=== PATIENT | female | born 1940 | race African-American/Black ===

== ENCOUNTER 2020-04-18 15:55 | Observation (INO) ==
[2020-04-18] MEDS ORDERED: NITROGLYCERIN SL 0.4 MG TABLET SL PRN (19:17)
[2020-04-18] MEDS ORDERED: MORPHINE 4 MG/1 ML VIAL IV STA ×2 (19:18→22:00)
[2020-04-18 20:28] LABS: Basophils % 0.1 % (0.0-0.8); Eosinophils % 0.2 % (0.00-10.9); Hematocrit 39.7 VOL% (35.7-47.0); Hemoglobin 12.7 GM/DL (12.0-16.0); Immature Granulocytes % 0.5 %; Immature Granulocytes Absolute 0.06 #; Lymphocytes # 0.7 10*3/uL (1.4-4.0); Lymphocytes % 6.7 % (21.3-54.2); Mean Platelet Volume 10.3 FL (9.6-12.0); Monocytes % 10.9 % (1.7-12.7); Neutrophils % 81.6 % (38.7-73.9); Platelet Count 299 T/CUMM (130-400); Red Blood Count 3.78 MC/CUMM (3.8-5.5); Red Cell Distribution Width 14.5 % (9.3-17.3); White Blood Count 11.1 T/CUMM (4-12)
[2020-04-18 20:47] LABS: INR 1.3; PT Patient Result 13.6 SECS (9.8-11.9); Partial Thromboplastin Time 33.6 SECS (23.9-33.8)
[2020-04-18 20:48] LABS: Albumin 3.6 G/DL (3.4-5.0); Bilirubin,Total 0.8 MG/DL (0.2-1.0); Calcium 8.8 MG/DL (8.5-10.1); Osmolality,Calculated 274.1 MOS/KG (273-304); Potassium 5.1 MMOL/L (3.5-5.1); Total Protein 7.8 G/DL (6.4-8.3)
[2020-04-18] MEDS ORDERED: ALUM/MAG/SIMETH/LIDO VISC 1:1 30 ML BOTTLE PO STA (21:04)
[2020-04-18] MEDS ORDERED: ALUM/MAG/SIMETH/LIDO VISC 1:1 30 ML BOTTLE PO ONE (21:04)
[2020-04-19] MEDS ORDERED: MORPHINE 4 MG/1 ML VIAL IV PRN (02:05)
[2020-04-19] MEDS ORDERED: GLUCAGON 1 MG VIAL IM PRN (02:05)
[2020-04-19] MEDS ORDERED: DEXTROSE 50% 25 GM/50 ML VIAL IV PRN (02:05)
[2020-04-19] MEDS ORDERED: ONDANSETRON 4 MG/2 ML VIAL IV PRN (02:05)
[2020-04-19] MEDS: ENOXAPARIN 40 MG/0.4 ML SYRINGE SUBCUT SCH (04:15)
[2020-04-19 07:14] LABS: Basophils % 0.1 % (0.0-0.8); Hematocrit 37.7 VOL% (35.7-47.0); Hemoglobin 12.4 GM/DL (12.0-16.0); Immature Granulocytes % 0.6 %; Immature Granulocytes Absolute 0.08 #; Lymphocytes # 1.2 10*3/uL (1.4-4.0); Lymphocytes % 8.8 % (21.3-54.2); Mean Corpuscular HGB Conc 32.9 GM/DL (32-36); Mean Corpuscular Volume 102.4 FL (87-102); Mean Platelet Volume 10.2 FL (9.6-12.0); Monocytes % 18.6 % (1.7-12.7); NRBC # 0.02 10*3/uL; Neutrophils % 71.9 % (38.7-73.9); Platelet Count 321 T/CUMM (130-400); Red Blood Count 3.68 MC/CUMM (3.8-5.5); Red Cell Distribution Width 14.5 % (9.3-17.3); White Blood Count 14.2 T/CUMM (4-12)
[2020-04-19 07:35] LABS: Hypochromasia 1+; Lymphocytes 11 % (20-55); Microcytosis 1+; Platelet Estimate Adequate; Segmented Neutrophils 70 % (50-85); Total Cells Counted 100
[2020-04-19 07:38] LABS: Risk Ratio 1.94; VLDL CHOLESTEROL 9.8 MG/DL
[2020-04-19 07:38] LABS: Albumin 3.2 G/DL (3.4-5.0); Bilirubin,Total 1.2 MG/DL (0.2-1.0); Calcium 8.6 MG/DL (8.5-10.1); Osmolality,Calculated 268.5 MOS/KG (273-304); Potassium 4.6 MMOL/L (3.5-5.1)
[2020-04-19] MEDS: PANTOPRAZOLE 40 MG TABLET PO SCH ×2 (08:42→20:43)
[2020-04-19] MEDS ORDERED: PANTOPRAZOLE 40 MG TABLET PO SCH (09:00)
[2020-04-19] MEDS ORDERED: traMADol 50 MG TABLET PO PRN (12:18)
[2020-04-19] MEDS ORDERED: ALUM/MAG/SIMETH/LIDO VISC 1:1 30 ML BOTTLE PO ONE (12:19)
[2020-04-19] MEDS ORDERED: ALUMINUM/MAGNES/SIMETH MAX STR 30 ML UDCUP PO PRN (19:18)
[2020-04-20] MEDS: ENOXAPARIN 40 MG/0.4 ML SYRINGE SUBCUT SCH (02:40)
[2020-04-20 06:03] LABS: Basophils % 0.1 % (0.0-0.8); Eosinophils % 0.5 % (0.00-10.9); Hematocrit 37.2 VOL% (35.7-47.0); Hemoglobin 12.4 GM/DL (12.0-16.0); Immature Granulocytes % 0.3 %; Immature Granulocytes Absolute 0.02 #; Lymphocytes # 1.8 10*3/uL (1.4-4.0); Mean Corpuscular HGB Conc 33.3 GM/DL (32-36); Mean Corpuscular Volume 100.8 FL (87-102); Mean Platelet Volume 10.5 FL (9.6-12.0); Monocytes % 19.5 % (1.7-12.7); NRBC # 0.02 10*3/uL; Neutrophils % 56.6 % (38.7-73.9); Platelet Count 274 T/CUMM (130-400); Red Blood Count 3.69 MC/CUMM (3.8-5.5); Red Cell Distribution Width 14.4 % (9.3-17.3); White Blood Count 7.6 T/CUMM (4-12)
[2020-04-20 06:21] LABS: Calcium 8.5 MG/DL (8.5-10.1); Osmolality,Calculated 271.4 MOS/KG (273-304); Potassium 4.5 MMOL/L (3.5-5.1)
[2020-04-20 06:40] LABS: Lymphocytes 27 % (20-55); Nucleated Red Blood Cells 1 (0-5); Platelet Estimate Normal; Segmented Neutrophils 54 % (50-85); Total Cells Counted 100
[2020-04-20] MEDS: CLOPIDOGREL 75 MG TABLET PO SCH (08:20)
[2020-04-20] MEDS: PANTOPRAZOLE 40 MG TABLET PO SCH ×2 (08:20→20:40)
[2020-04-20] MEDS: ATORVASTATIN 20 MG TABLET PO SCH (08:20)
[2020-04-20] MEDS ORDERED: ENOXAPARIN 100 MG/ML SYRINGE SUBCUT STA (09:33)
[2020-04-20] MEDS ORDERED: diphenhydrAMINE CAP 25 MG CAPSULE PO ONE (09:34)
[2020-04-20] MEDS ORDERED: ENOXAPARIN 30 MG/0.3 ML SYRINGE IV ONE (09:34)
[2020-04-20] MEDS ORDERED: DIAZEPAM 5 MG TABLET PO ONE (09:34)
[2020-04-20] MEDS ORDERED: MAGNESIUM SULF RIDER 2 GM in PREMIX 1 EACH IV PRN (09:34)
[2020-04-20] MEDS ORDERED: POTASSIUM CHLORIDE RIDER 10 MEQ in PREMIX 1 EACH IV PRN (09:34)
[2020-04-20] MEDS ORDERED: ENOXAPARIN 120 MG/0.8 ML SYRINGE SUBCUT ONE (09:43)
[2020-04-20] MEDS: SODIUM CHLORIDE 0.9% 1,000 ML IV SCH ×2 (09:43→20:40)
[2020-04-20] MEDS ORDERED: MIDAZOLAM 2 MG/2 ML VIAL ONE (09:45)
[2020-04-20] MEDS ORDERED: LIDOCAINE 1% 20 ML VIAL ONE (09:45)
[2020-04-20] MEDS ORDERED: HYDROmorphone 2 MG/1 ML VIAL ONE (09:46)
[2020-04-20] MEDS ORDERED: ENOXAPARIN 30 MG/0.3 ML SYRINGE ONE ×3 (09:49→10:19)
[2020-04-20] MEDS ORDERED: ENOXAPARIN 60 MG/0.6 ML SYRINGE ONE (10:18)
[2020-04-20 12:02] LABS: Troponin I < 0.015 NG/ML (0.00-0.045)
[2020-04-20] MEDS: NITROGLYCERIN 2% OINT 1 INCH/GM PACK TOP SCH ×2 (13:12→18:13)
[2020-04-21] MEDS: NITROGLYCERIN 2% OINT 1 INCH/GM PACK TOP SCH ×3 (01:13→12:23)
[2020-04-21] MEDS: SODIUM CHLORIDE 0.9% 1,000 ML IV SCH ×2 (03:24→06:00)
[2020-04-21] MEDS: ENOXAPARIN 40 MG/0.4 ML SYRINGE SUBCUT SCH (03:26)
[2020-04-21 06:28] LABS: Basophils % 0.1 % (0.0-0.8); Eosinophils # 0.1 10*3/uL (0.0-0.87); Eosinophils % 1.6 % (0.00-10.9); Hematocrit 33.8 VOL% (35.7-47.0); Hemoglobin 11.1 GM/DL (12.0-16.0); Immature Granulocytes % 0.3 %; Immature Granulocytes Absolute 0.02 #; Lymphocytes # 1.1 10*3/uL (1.4-4.0); Lymphocytes % 16.9 % (21.3-54.2); Mean Corpuscular HGB Conc 32.8 GM/DL (32-36); Mean Corpuscular Volume 102.4 FL (87-102); Mean Platelet Volume 10.8 FL (9.6-12.0); Monocytes % 15.7 % (1.7-12.7); Neutrophils % 65.4 % (38.7-73.9); Platelet Count 267 T/CUMM (130-400); Red Cell Distribution Width 14.4 % (9.3-17.3); White Blood Count 6.8 T/CUMM (4-12)
[2020-04-21 06:55] LABS: Eosinophils 4 % (0-10); Lymphocytes 16 % (20-55); Macrocytosis Slight; Platelet Estimate Normal; Segmented Neutrophils 69 % (50-85); Total Cells Counted 100
[2020-04-21 07:01] LABS: Calcium 8.3 MG/DL (8.5-10.1); Osmolality,Calculated 273.1 MOS/KG (273-304); Potassium 5.1 MMOL/L (3.5-5.1)
[2020-04-21] MEDS: PANTOPRAZOLE 40 MG TABLET PO SCH (08:45)
[2020-04-21] MEDS: ATORVASTATIN 20 MG TABLET PO SCH (08:45)
[2020-04-21] MEDS: CLOPIDOGREL 75 MG TABLET PO SCH (08:45)
[2020-04-21 12:16] VITALS: BP 177/88
== END 2020-04-21 15:34 | disposition home health service (06) ==
LOC: N.ED 15:55 → N.EDINP 15:55 → N.TELES 04-19 04:42
PROVIDERS: ADMIT Internal Medicine; ATTEND Internal Medicine

== ENCOUNTER 2020-08-25 02:54 | Inpatient (IN) ==
[2020-08-25 03:33] LABS: Basophils % 0.1 % (0.0-0.8); Eosinophils # 0.3 10*3/uL (0.0-0.87); Eosinophils % 4.6 % (0.00-10.9); Hematocrit 37.8 VOL% (35.7-47.0); Hemoglobin 12.3 GM/DL (12.0-16.0); Immature Granulocytes % 0.4 %; Immature Granulocytes Absolute 0.03 #; Lymphocytes # 1.8 10*3/uL (1.4-4.0); Lymphocytes % 24.8 % (21.3-54.2); Mean Corpuscular HGB Conc 32.5 GM/DL (32-36); Mean Corpuscular Volume 101.1 FL (87-102); Monocytes % 13.9 % (1.7-12.7); Neutrophils % 56.2 % (38.7-73.9); Platelet Count 350 T/CUMM (130-400); Red Blood Count 3.74 MC/CUMM (3.8-5.5); Red Cell Distribution Width 14.5 % (9.3-17.3); White Blood Count 7.1 T/CUMM (4-12)
[2020-08-25 03:51] LABS: Albumin 3.7 G/DL (3.4-5.0); Bilirubin,Total 0.4 MG/DL (0.2-1.0); Osmolality,Calculated 285.3 MOS/KG (273-304); Potassium 3.6 MMOL/L (3.5-5.1); Total Protein 7.8 G/DL (6.4-8.2)
[2020-08-25] MEDS ORDERED: ONDANSETRON 4 MG/2 ML VIAL IV STA (04:57)
[2020-08-25] MEDS ORDERED: GLUCAGON 1 MG VIAL IM PRN (05:30)
[2020-08-25] MEDS ORDERED: DEXTROSE 50% 25 GM/50 ML VIAL IV PRN (05:30)
[2020-08-25] MEDS ORDERED: PROMETHAZINE 25 MG/1 ML VIAL IM PRN (05:38)
[2020-08-25] MEDS ORDERED: ONDANSETRON 4 MG/2 ML VIAL IV PRN (05:38)
[2020-08-25] MEDS ORDERED: ACETAMINOPHEN 325 MG TABLET PO PRN (05:38)
[2020-08-25] MEDS ORDERED: LACTULOSE 20 GM/30 ML UDCUP PO SCH ×2 (06:00→08:00)
[2020-08-25] MEDS ORDERED: POLYETHYLENE GLYCOL POWDER 17 GM PACK PO SCH (09:00)
[2020-08-25] MEDS: PANTOPRAZOLE 40 MG VIAL IV SCH ×2 (09:01→21:35)
[2020-08-25] MEDS: POLYETHYLENE GLYCOL POWDER 17 GM PACK PO SCH (21:36)
[2020-08-26 05:22] LABS: Basophils % 0.2 % (0.0-0.8); Eosinophils # 0.2 10*3/uL (0.0-0.87); Eosinophils % 4.5 % (0.00-10.9); Hematocrit 35.9 VOL% (35.7-47.0); Hemoglobin 11.9 GM/DL (12.0-16.0); Immature Granulocytes % 0.4 %; Immature Granulocytes Absolute 0.02 #; Lymphocytes # 1.5 10*3/uL (1.4-4.0); Lymphocytes % 31.9 % (21.3-54.2); Mean Corpuscular HGB Conc 33.1 GM/DL (32-36); Mean Corpuscular Volume 101.7 FL (87-102); Mean Platelet Volume 10.4 FL (9.6-12.0); Monocytes % 15.4 % (1.7-12.7); Neutrophils % 47.6 % (38.7-73.9); Platelet Count 312 T/CUMM (130-400); Red Blood Count 3.53 MC/CUMM (3.8-5.5); Red Cell Distribution Width 14.3 % (9.3-17.3); White Blood Count 4.7 T/CUMM (4-12)
[2020-08-26 05:53] LABS: Albumin 3.2 G/DL (3.4-5.0); Calcium 8.8 MG/DL (8.5-10.1); Osmolality,Calculated 283.1 MOS/KG (273-304); Potassium 3.7 MMOL/L (3.5-5.1); Total Protein 7.3 G/DL (6.4-8.2)
[2020-08-26] MEDS: POLYETHYLENE GLYCOL POWDER 17 GM PACK PO SCH (08:47)
[2020-08-26] MEDS: PANTOPRAZOLE 40 MG VIAL IV SCH (08:48)
[2020-08-26 09:14] VITALS: BP 117/70
== END 2020-08-26 12:23 | disposition home health service (06) | DRG 392 ==
LOC: EDBD → EDUNIT# → N.EDINP 02:54 → N.ED 02:54 → N.EDINP 06:06 → N.4E 06:16 → SUATTDRO 09:30
PROVIDERS: ADMIT Internal Medicine; ATTEND Internal Medicine

== ENCOUNTER 2021-05-07 03:32 | Observation (INO) ==
[2021-05-07] MEDS ORDERED: ONDANSETRON 4 MG/2 ML VIAL IV STA (03:55)
[2021-05-07] MEDS ORDERED: HYDROmorphone 2 MG/1 ML VIAL IV STA (03:55)
[2021-05-07 04:59] LABS: Eosinophils % 0.4 % (0.00-10.9); Hematocrit 42.2 VOL% (35.7-47.0); Hemoglobin 14.1 GM/DL (12.0-16.0); Immature Granulocytes % 0.3 %; Immature Granulocytes Absolute 0.02 #; Lymphocytes # 0.8 10*3/uL (1.4-4.0); Lymphocytes % 11.7 % (21.3-54.2); Mean Corpuscular HGB Conc 33.4 GM/DL (32-36); Mean Platelet Volume 10.1 FL (9.6-12.0); Monocytes % 7.5 % (1.7-12.7); Neutrophils % 80.1 % (38.7-73.9); Platelet Count 344 T/CUMM (130-400); Red Blood Count 4.22 MC/CUMM (3.8-5.5); Red Cell Distribution Width 13.7 % (9.3-17.3); White Blood Count 6.9 T/CUMM (4-12)
[2021-05-07 05:38] LABS: Albumin 3.7 G/DL (3.4-5.0); Potassium 3.6 MMOL/L (3.5-5.1); Total Protein 8.9 G/DL (6.4-8.2)
[2021-05-07 05:40] LABS: Bacteria,Urine Moderate /HPF (Few); RBC,Urine 2 /HPF (0-4); Squamous Epithelial Cell,Urine Occasional /HPF (0-10)
[2021-05-07 05:41] LABS: Bilirubin,Urine Negative (Negative); Blood, Urine Trace mg/dL (Negative); Glucose,Urine (UA) Negative (Negative); Ketones,Urine Negative (Negative); Nitrite,Urine Positive (Negative); Protein,Urine 30 MG/DL; Urine Appearance Clear (Clear); Urine Color Yellow (Yellow); Urine Specific Gravity 1.025 (1.001-1.035); Urine Urobilinogen 0.2 EU/DL (<2.0)
[2021-05-07] MEDS ORDERED: LABETALOL 20 MG/4 ML SYRINGE IV STA (05:43)
[2021-05-07] MEDS ORDERED: hydrALAZINE 20 MG/1 ML VIAL IV PRN (06:08)
[2021-05-07] MEDS ORDERED: GLUCAGON 1 MG VIAL IM PRN (06:08)
[2021-05-07] MEDS ORDERED: ONDANSETRON 4 MG/2 ML VIAL IV PRN (06:08)
[2021-05-07] MEDS ORDERED: DEXTROSE 10% 250 ML BAG IV PRN (06:26)
[2021-05-07] MEDS ORDERED: MORPHINE 4 MG/1 ML VIAL IV PRN (06:27)
[2021-05-07 07:30] LABS: Risk Ratio 2.51; Thyroid Stimulating Hormone 2.36 uIU/ml (0.358-3.74)
[2021-05-07] MEDS ORDERED: cefTRIAXone 1,000 MG in SODIUM CHLORIDE 0.9% 100 ML IV SCH (08:00)
[2021-05-07] MEDS ORDERED: traMADol 50 MG TABLET PO PRN (09:00)
[2021-05-07] MEDS: ENOXAPARIN 40 MG/0.4 ML SYRINGE SUBCUT SCH (09:09)
[2021-05-07] MEDS: PANTOPRAZOLE 40 MG TABLET PO SCH (09:10)
[2021-05-07] MEDS: CLOPIDOGREL 75 MG TABLET PO SCH (09:10)
[2021-05-07] MEDS: ACETAMINOPHEN 325 MG TABLET PO PRN (20:26)
[2021-05-07] MEDS ORDERED: DONEPEZIL 10 MG TABLET PO SCH (21:00)
[2021-05-07] MEDS ORDERED: ATORVASTATIN 40 MG TABLET PO SCH (21:00)
[2021-05-08 05:26] LABS: Basophils % 0.1 % (0.0-0.8); Eosinophils % 0.3 % (0.00-10.9); Hematocrit 39.7 VOL% (35.7-47.0); Immature Granulocytes % 0.4 %; Immature Granulocytes Absolute 0.03 #; Lymphocytes # 0.8 10*3/uL (1.4-4.0); Lymphocytes % 11.2 % (21.3-54.2); Mean Corpuscular HGB Conc 32.7 GM/DL (32-36); Mean Corpuscular Volume 100.5 FL (87-102); Mean Platelet Volume 10.5 FL (9.6-12.0); Platelet Count 342 T/CUMM (130-400); Red Blood Count 3.95 MC/CUMM (3.8-5.5); Red Cell Distribution Width 13.7 % (9.3-17.3); White Blood Count 6.7 T/CUMM (4-12)
[2021-05-08 05:46] LABS: Calcium 9.3 MG/DL (8.5-10.1); Potassium 4.1 MMOL/L (3.5-5.1)
[2021-05-08] MEDS ORDERED: FUROSEMIDE 20 MG TABLET PO SCH (09:00)
[2021-05-08] MEDS ORDERED: allopurinoL 300 MG TABLET PO SCH (09:00)
[2021-05-08] MEDS ORDERED: amLODIPine 10 MG TABLET PO SCH (09:00)
[2021-05-08] MEDS ORDERED: LOSARTAN 50 MG TABLET PO SCH (09:00)
[2021-05-08] MEDS: PANTOPRAZOLE 40 MG TABLET PO SCH (09:23)
[2021-05-08] MEDS: CLOPIDOGREL 75 MG TABLET PO SCH (09:23)
[2021-05-08] MEDS: ENOXAPARIN 40 MG/0.4 ML SYRINGE SUBCUT SCH (09:23)
[2021-05-08] MEDS: ACETAMINOPHEN 325 MG TABLET PO PRN (11:13)
[2021-05-08 12:39] VITALS: BP 165/86
== END 2021-05-08 12:57 | disposition home or self-care (01) ==
LOC: SUATTDRO → EDBD → EDUNIT# → N.ED 03:32 → N.EDINP 03:32 → SUATTDRO 06:08 → N.TELEN 17:00
PROVIDERS: ADMIT Emergency Medicine; ATTEND Internal Medicine

== ENCOUNTER 2021-06-14 17:04 | Observation (INO) ==
[2021-06-14] MEDS ORDERED: ONDANSETRON 4 MG/2 ML VIAL IV STA (17:57)
[2021-06-14] MEDS ORDERED: SODIUM CHLORIDE 0.9% 1,000 ML IV STA (17:57)
[2021-06-14 18:17] LABS: Basophils % 0.1 % (0.0-0.8); Eosinophils # 0.1 10*3/uL (0.0-0.87); Eosinophils % 1.5 % (0.00-10.9); Hematocrit 39.7 VOL% (35.7-47.0); Immature Granulocytes % 0.4 %; Immature Granulocytes Absolute 0.03 #; Lymphocytes # 1.8 10*3/uL (1.4-4.0); Lymphocytes % 22.8 % (21.3-54.2); Mean Corpuscular HGB Conc 32.7 GM/DL (32-36); Mean Platelet Volume 9.9 FL (9.6-12.0); Monocytes % 12.8 % (1.7-12.7); Neutrophils % 62.4 % (38.7-73.9); Platelet Count 429 T/CUMM (130-400); Red Blood Count 3.93 MC/CUMM (3.8-5.5); Red Cell Distribution Width 14.2 % (9.3-17.3)
[2021-06-14 18:29] LABS: Albumin 3.5 G/DL (3.4-5.0); Bilirubin,Total 0.8 MG/DL (0.20-1.00); Calcium 9.4 MG/DL (8.5-10.1); Osmolality,Calculated 281.4 MOS/KG (273-304); Potassium 3.9 MMOL/L (3.5-5.1); Total Protein 8.3 G/DL (6.4-8.2)
[2021-06-14 20:29] LABS: Bacteria,Urine Occasional /HPF (Few); Bilirubin,Urine Negative (Negative); Blood, Urine Negative (Negative); Glucose,Urine (UA) Negative (Negative); Ketones,Urine Negative (Negative); Nitrite,Urine Negative (Negative); Protein,Urine Negative (Negative); RBC,Urine 3 /HPF (0-4); Squamous Epithelial Cell,Urine Occasional /HPF (0-10); Urine Appearance Clear (Clear); Urine Color Yellow (Yellow); Urine Specific Gravity 1.015 (1.001-1.035); Urine Urobilinogen 0.2 eU/dL (<2.0)
[2021-06-14] MEDS ORDERED: ONDANSETRON 4 MG/2 ML VIAL IV PRN (22:55)
[2021-06-14] MEDS ORDERED: ACETAMINOPHEN 500 MG TABLET PO STA (23:07)
[2021-06-15] MEDS ORDERED: traMADol 50 MG TABLET PO PRN (02:34)
[2021-06-15] MEDS ORDERED: FAMOTIDINE 20 MG TABLET PO PRN (02:48)
[2021-06-15 05:28] LABS: Hematocrit 34.8 VOL% (35.7-47.0); Hemoglobin 11.5 GM/DL (12.0-16.0)
[2021-06-15] MEDS ORDERED: ALBUTEROL 2.5 MG/3 ML NEB RESP TX PRN (07:00)
[2021-06-15 07:21] LABS: Albumin 2.9 G/DL (3.4-5.0); Bilirubin,Total 0.9 MG/DL (0.20-1.00); Calcium 8.4 MG/DL (8.5-10.1); Osmolality,Calculated 276.5 MOS/KG (273-304); Potassium 3.6 MMOL/L (3.5-5.1); Total Protein 6.9 G/DL (6.4-8.2)
[2021-06-15] MEDS ORDERED: CLOPIDOGREL 75 MG TABLET PO SCH (09:00)
[2021-06-15] MEDS ORDERED: PANTOPRAZOLE 40 MG TABLET PO SCH (09:00)
[2021-06-15] MEDS: FUROSEMIDE 20 MG TABLET PO SCH (09:21)
[2021-06-15] MEDS: allopurinoL 100 MG TABLET PO SCH (09:21)
[2021-06-15] MEDS: amLODIPine 10 MG TABLET PO SCH (09:22)
[2021-06-15] MEDS: ATORVASTATIN 40 MG TABLET PO SCH (09:22)
[2021-06-15] MEDS: NORTRIPTYLINE 25 MG CAPSULE PO SCH (09:22)
[2021-06-15] MEDS: LOSARTAN 50 MG TABLET PO SCH (09:22)
[2021-06-15] MEDS: POLYETHYLENE GLYCOL POWDER 17 GM PACK PO SCH (09:23)
[2021-06-15] MEDS ORDERED: PROMETHAZINE 25 MG TABLET PO PRN (09:25)
[2021-06-15 11:07] LABS: Hematocrit 37.7 VOL% (35.7-47.0); Hemoglobin 12.5 GM/DL (12.0-16.0)
[2021-06-15 16:57] LABS: Hematocrit 35.6 VOL% (35.7-47.0); Hemoglobin 11.4 GM/DL (12.0-16.0)
[2021-06-15] MEDS ORDERED: DONEPEZIL 10 MG TABLET PO SCH (21:00)
[2021-06-15 23:08] LABS: Hemoglobin 11.5 GM/DL (12.0-16.0)
[2021-06-16] MEDS: NORTRIPTYLINE 25 MG CAPSULE PO SCH (08:49)
[2021-06-16] MEDS: ATORVASTATIN 40 MG TABLET PO SCH (08:50)
[2021-06-16] MEDS: amLODIPine 10 MG TABLET PO SCH (08:51)
[2021-06-16] MEDS: FUROSEMIDE 20 MG TABLET PO SCH (08:51)
[2021-06-16] MEDS: allopurinoL 100 MG TABLET PO SCH (08:52)
[2021-06-16] MEDS: LOSARTAN 50 MG TABLET PO SCH (08:52)
[2021-06-16] MEDS: POLYETHYLENE GLYCOL POWDER 17 GM PACK PO SCH (08:53)
[2021-06-16] MEDS ORDERED: PANTOPRAZOLE 40 MG VIAL IV SCH (09:00)
[2021-06-16] MEDS ORDERED: PANTOPRAZOLE 40 MG TABLET PO SCH (09:00)
[2021-06-16 11:17] LABS: Calcium 8.3 MG/DL (8.5-10.1); Osmolality,Calculated 282.1 MOS/KG (273-304); Potassium 4.2 MMOL/L (3.5-5.1)
[2021-06-16 11:35] LABS: Basophils % 0.1 % (0.0-0.8); Eosinophils # 0.1 10*3/uL (0.0-0.87); Eosinophils % 1.6 % (0.00-10.9); Hemoglobin 11.5 GM/DL (12.0-16.0); Immature Granulocytes % 0.3 %; Immature Granulocytes Absolute 0.02 #; Lymphocytes # 1.4 10*3/uL (1.4-4.0); Lymphocytes % 20.3 % (21.3-54.2); Mean Corpuscular HGB Conc 31.9 GM/DL (32-36); Mean Corpuscular Volume 103.7 FL (87-102); Monocytes % 11.5 % (1.7-12.7); Neutrophils % 66.2 % (38.7-73.9); Platelet Count 346 T/CUMM (130-400); Red Blood Count 3.47 MC/CUMM (3.8-5.5); Red Cell Distribution Width 14.5 % (9.3-17.3); White Blood Count 7.1 T/CUMM (4-12)
[2021-06-16 15:59] VITALS: BP 152/81
== END 2021-06-16 17:36 | disposition home or self-care (01) ==
LOC: EDBD 17:04 → N.ED 17:04 → N.EDINP 17:04 → EDUNIT# 17:04 → N.5E 23:41
PROVIDERS: ADMIT Hospitalist; ATTEND Hospitalist